=== PATIENT | male | born 1970 | race African-American/Black ===

== ENCOUNTER 2017-06-24 19:26 | Inpatient (IN) | payer OTHER ==
[~2017-06-24] VITALS: Ht 170.2 cm; Wt 87.4 kg
[2017-06-24 22:25] LABS: EOSINOPHIL (%) 0.1 % (0-5); HEMATOCRIT 38.7 % (38.0-50.0); IMMATURE GRANULOCYTE (%) 0.6 % (0.0-0.7); IMMATURE GRANULOCYTE COUNT 0.1 K/uL; INSTRUMENT ABS NEUTROPHIL CT 15.3 K/uL; LYMPHOCYTE COUNT 1.1 K/uL (1.0-2.8); MCH 31.1 PG (29.0-34.0); MCHC 33.3 G/DL (30.0-36.0); MCV 93.3 FL (86-99); MEAN PLAT.VOLUME 9.4 uM^3 (9.0-12.4); MONOCYTE (%) 3.2 % (3-12); MONOCYTE COUNT 0.5 K/uL (0-0.8); NEUTROPHIL (%) 89.3 % (45-76); NEUTROPHIL COUNT 15.3 K/uL (1.8-6.4); PLATELET COUNT 168 K/uL (156-360); RBC DIS.WIDTH-CV 11.5 % (11.8-14.6); RBC DIS.WIDTH-SD 39.7 % (39-53); RED BLOOD COUNT 4.15 M/uL (4.00-5.50); WHITE BLOOD COUNT 17.1 K/uL (4.1-10.2)
[2017-06-24 22:37] LABS: CHLORIDE 104 mEq/L (99-109); POTASSIUM 3.7 mEq/L (3.7-5.4); SODIUM 140 mEq/L (136-147)
[2017-06-24 22:38] LABS: GLUCOSE 106 mg/dL (70-99)
[2017-06-24 22:40] LABS: ANION GAP 11 MEQ/L (2-14)
[2017-06-24 22:42] LABS: GFR ESTIMATE (CALCULATED) > 59 mL/min/; SERUM ETHYL ALCOHOL < 10 mg/dL
[2017-06-24 22:43] LABS: UREA NITROGEN (BUN) 13 mg/dL (9-23)
[2017-06-25 01:13] LABS: PROTHROMBIN TIME 11.1 SEC (10.2-12.9)
[2017-06-25 02:00] VITALS: BP 128/68
[2017-06-25 05:15] LABS: HEMATOCRIT 39.8 % (38.0-50.0); MCHC 32.9 G/DL (30.0-36.0); MCV 94.1 FL (86-99); MEAN PLAT.VOLUME 9.6 uM^3 (9.0-12.4); PLATELET COUNT 175 K/uL (156-360); RBC DIS.WIDTH-CV 11.6 % (11.8-14.6); RBC DIS.WIDTH-SD 39.8 % (39-53); RED BLOOD COUNT 4.23 M/uL (4.00-5.50); WHITE BLOOD COUNT 18.6 K/uL (4.1-10.2)
[2017-06-25 05:44] LABS: ALKALINE PHOSPHATASE 51 IU/L (3-129); ANION GAP 9 MEQ/L (2-14); CHLORIDE 105 MEQ/L (99-109); GFR ESTIMATE (CALCULATED) > 59 mL/min/; GLUCOSE 113 mg/dL (70-99); POTASSIUM 4.1 MEQ/L (3.7-5.4); SAMPLE HEMOLYSIS CHECK 0; SAMPLE ICTERIC CHECK 0; SAMPLE LIPEMIA CHECK 0; SODIUM 138 MEQ/L (136-147); TOTAL BILIRUBIN 0.7 MG/DL (0.0-1.0); UREA NITROGEN (BUN) 12 mg/dL (9-23)
[2017-06-25 05:48] VITALS: BP 134/62
[2017-06-25 08:30] VITALS: BP 124/78
[2017-06-25 12:05] VITALS: BP 131/62
[2017-06-25 20:00] VITALS: BP 118/63
[2017-06-26 04:38] VITALS: BP 123/74
== END 2017-06-26 08:07 | disposition left against medical advice (07) | DRG 86 ==
LOC: TRA 19:26 → EME 19:26 → EDOF 23:23 → 4EAST 23:23 → ENRESERV 23:26 → 4EAST 06-25 01:40
PROVIDERS: Emergency Medicine; Surgery
PROC: 0CQ0XZZ Repair Upper Lip, External Approach (ICD-10-PCS; principal; 2017-06-24)
DX: S06.6X0A Traumatic subarachnoid hemorrhage without loss of consciousness, initial encounter (principal); S06.5X0A Traumatic subdural hemorrhage without loss of consciousness, initial encounter; S01.511A Laceration without foreign body of lip, initial encounter; Y09 Assault by unspecified means; K50.90 Crohn's disease, unspecified, without complications; F17.210 Nicotine dependence, cigarettes, uncomplicated; R05 Cough; M54.2 Cervicalgia
CPT/HCPCS: 70450; 71020; 72125; 80048; 80053; 85025; 85027; 85610; 85730; 99281; 99284; G0480; J7120